=== PATIENT | female | born 1995 | race Caucasian/White ===

== ENCOUNTER 2024-07-31 09:33 | Outpatient (CLI) | payer BC | END 2024-07-31 09:34 | disposition home or self-care (01) | LOC: CT 09:33 | PROVIDERS: ATTEND Nurse Practitioner Family | DX: N92.1 Excessive and frequent menstruation with irregular cycle (principal); N94.6 Dysmenorrhea, unspecified; R19.5 Other fecal abnormalities; R10.84 Generalized abdominal pain | CPT/HCPCS: 74178 ==